=== PATIENT | male | born 1955 | race Two or more races ===

== ENCOUNTER 2023-06-19 20:13 | Observation (INO) | payer OTHER ==
[~2023-06-19] VITALS: Ht 177.8 cm; Wt 90.7 kg
[2023-06-19 21:27] LABS: Basophils # (auto) 0 10 ^3/uL (0-0.2); Basophils % (auto) 0.5 % (0.0-2.0); Eosinophils # (auto) 0.3 10 ^3/uL (0-0.8); Eosinophils % (auto) 4.8 % (0.0-7.0); Hematocrit 38.1 % (41.0-53.0); Hemoglobin 13.3 g/dL (13.5-17.5); Lymphocytes # (auto) 1.7 10 ^3/uL (0.4-5.4); Lymphocytes % (auto) 25.2 % (10.0-50.0); Mean Corpuscular Hemoglobin 34.5 pg (28.0-32.0); Mean Corpuscular Volume 98.7 fL (80.0-100.0); Monocytes # (auto) 0.6 10 ^3/uL (0-1.3); Monocytes % (auto) 9.2 % (0.0-12.0); Neutrophils # (auto) 4.1 10 ^3/uL (1.6-8.6); Neutrophils % (auto) 60.3 % (37.0-80.0); Nucleated Red Blood Cells % 0.3 %; Red Blood Cells 3.86 10^6/uL (4.5-5.90); Red Cell Distribution Width 15.7 % (11.8-14.3); White Blood Cell 6.7 10^3/uL (4.4-10.8)
[2023-06-19 21:35] LABS: Alanine Aminotransferase 22 U/L (7-40); Albumin 3.3 g/dL (3.2-4.8); Alkaline Phosphatase 163 U/L (46-116); Anion Gap 8 (5-15); Aspartate Aminotransferase 41 U/L (13-40); Bilirubin, Total 4.4 mg/dL (0.2-1.0); Blood Alcohol 5.2 mg/dL (<10); Blood Urea Nitrogen 11 mg/dL (9-23); Calcium 9.4 mg/dL (8.5-10.1); Carbon Dioxide 21 mmol/L (20-30); Chloride 113 mmol/L (98-107); Glucose 144 mg/dL (74-106); Potassium 3.7 mmol/L (3.5-5.1); Sodium 142 mmol/L (136-145); Total Protein 7.4 g/dL (5.7-8.2)
[2023-06-19 21:47] LABS: INR 1.34 (0.9-1.15); Partial Thromboplastin Time 31.5 SEC (24.5-34.5); Prothrombin Time 13.8 sec (9.3-11.8)
[2023-06-20 01:17] VITALS: PULSE 52; RESP 21; O2SAT 94
[2023-06-20] MEDS: LACTULOSE 20Gm/30ML SOLN PO ONE (01:45)
[2023-06-20 01:52] LABS: Urine Bacteria FEW /hpf (None Seen); Urine Blood Negative /uL (Negative); Urine Clarity Clear (Clear); Urine Color Yellow (Yellow); Urine Protein, UAD Negative (Negative); Urine Specific Gravity 1.009 (1.001-1.035); Urine Urobilinogen Normal (Negative); Urine WBC 28 /hpf (0 - 3); Urine WBC Clumps PRESENT /hpf (None Seen); Urine pH 6.5 (5.0-8.0)
[2023-06-20 01:55] LABS: Amphetamine Screen, Urine Neg (NEGATIVE); Barbiturate Scree,Urine Neg (NEGATIVE); Benzodiazephine Screen, Urine Neg (NEGATIVE); Cocaine Screen, Urine Neg (NEGATIVE)
[2023-06-20 01:56] LABS: Cannabinoid Screen, Urine Neg (NEGATIVE); Opiate Scree,Urine Neg (NEGATIVE); Phencyclidine Screen, Urine Neg (NEGATIVE)
[2023-06-20] MEDS ORDERED: ACETAMINOPHEN 325 MG TAB PO PRN (04:00)
[2023-06-20] MEDS: cefTRIAXone 1GM/50ML D5W 50 ML IV ONE (04:20)
[2023-06-20] MEDS: LACTULOSE 20Gm/30ML SOLN PO SCH (05:50)
[2023-06-20 07:35] VITALS: PULSE 56; RESP 16; O2SAT 97
[2023-06-20 08:00] VITALS: TEMP 97.5
[2023-06-20] MEDS ORDERED: DEXTROSE (50%) 50ML SYRG IV PRN (08:45)
[2023-06-20] MEDS: ACCU-CHEK COMFORT CURVE STRIP VI SCH (11:59)
[2023-06-20] MEDS: InsuLIN REG 1unit/0.01ml Soln (100units/ml) SC SCH (11:59)
[2023-06-20 14:00] VITALS: BP 165/68; PULSE 67; RESP 16; O2SAT 97
[2023-06-20] MEDS ORDERED: LACT10SO3 PO (14:59)
[2023-06-20] MEDS ORDERED: CEPH250C PO (14:59)
[2023-06-21] MEDS ORDERED: CEPHALEXIN 250 MG CAP PO SCH (06:00)
== END 2023-06-20 16:21 | disposition home or self-care (01) ==
LOC: ER 20:13 → EDBD 20:13 → OVERFLOW 06-20 04:01
PROVIDERS: ADMIT Internal Medicine; ATTEND Internal Medicine
DX: G92.8 Other toxic encephalopathy (principal); G93.41 Metabolic encephalopathy; E11.9 Type 2 diabetes mellitus without complications; E03.9 Hypothyroidism, unspecified; M13.861 Other specified arthritis, right knee; R41.82 Altered mental status, unspecified; K76.82 Hepatic encephalopathy; K70.30 Alcoholic cirrhosis of liver without ascites; Z88.6 Allergy status to analgesic agent; Z79.899 Other long term (current) drug therapy
CPT/HCPCS: 36415; 70450; 71045; 73562; 80053; 80307; 80320; 81001; 82140; 83605; 84484; 85025; 85610; 85730; 87040; 93005; 96365; 96372; 99285; G0378; J0696; J1815

== ENCOUNTER 2024-05-09 14:05 | Emergency (ER) | payer OTHER, MEDICAID ==
[~2024-05-09] VITALS: Ht 177.8 cm; Wt 97.7 kg
[~2024-05-09 14:05] MED LIST: CEPH250C PO; LACT10SO3 PO
[2024-05-09 15:30] VITALS: BP 150/80; PULSE 68; RESP 18; TEMP 98.8; O2SAT 98
[2024-05-09] MEDS: ACETAMINOPHEN 325 MG TAB PO ONE (15:48)
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
== END 2024-05-09 16:39 | disposition home or self-care (01) ==
LOC: EDBD 14:05 → ER 14:05
DX: S16.1XXA Strain of muscle, fascia and tendon at neck level, initial encounter (principal); S39.012A Strain of muscle, fascia and tendon of lower back, initial encounter; E11.9 Type 2 diabetes mellitus without complications; E03.9 Hypothyroidism, unspecified; Z88.6 Allergy status to analgesic agent; V49.88XA Car occupant (driver) (passenger) injured in other specified transport accidents, initial encounter; Y93.89 Activity, other specified; Y92.89 Other specified places as the place of occurrence of the external cause; Y99.8 Other external cause status
CPT/HCPCS: 72040; 72100; 73030